=== PATIENT | female | born 1970 | race Caucasian/White ===

== ENCOUNTER 2023-07-29 10:45 | Emergency (ER) | payer OTHER, SELFPAY ==
[2023-07-29] VITALS (11 sets, daily range): BP systolic 128–158; BP diastolic 82–99; PULSE 65–87
--- NOTE | 2023-07-29 11:14 | ED.GENMED ---
History of Present Illness
<Tessa Still PA-C - Last Filed: 07/29/23 18:06>
General
Chief Complaint: Dizziness
Source: patient
Exam Limitations: none
Time Seen by Provider: 07/29/23 11:12
Nursing documentation reviewed up to this point in time: agreed with
Travel History
Have you had any contact with someone who has COVID-19?: No
Do you have any symptoms of coronavirus? Fever > 100 degrees, chills, cough, shortness of breath, sore throat, loss of taste or smell, muscle aches, or headache?: No
History of Present Illness
History of Present Illness:
This is a 53-year-old female with past medical history of breast cancer status postlumpectomy, hyperlipidemia presenting the emergency department today with dizziness, nausea, and vomiting for the past 2 weeks. Patient states that it started as
dizziness and lightheadedness when standing from a sitting position but then progressed to feeling dizzy no matter the position as well as associated nausea and vomiting. Patient states that she feels the best when she is laying down and keeping
her head still as possible. Patient denies any feeling of the room spinning, denies any chest pain or shortness of breath. Patient denies any fevers or chills. Patient denies any visual changes. Patient has no associated headache with this.
Patient denies any syncopal episodes. Patient states that she has breast cancer history at the end of 2022, her treatment resolved and she currently takes estrogen inhibitor that she has been on for around 6 months patient told her oncologist about
her symptoms a week ago who wrote her prescription for meclizine and patient states that this did not really help her symptoms much. Patient states that she then saw urgent care 5 days ago and received Zofran which does help her a lot but she does
still have her symptoms.
Review of Systems
<Tessa Still PA-C - Last Filed: 07/29/23 18:06>
Review of Systems
All Other Systems: ROS reviewed and negative except as documented in HPI and ROS
Phy Exam
<Tessa Still PA-C - Last Filed: 07/29/23 18:06>
Physical Exam
Physical Exam:
General: Patient is well appearing and in no acute distress; non-toxic
Skin: Warm and dry, no rashes or lesions
Head: Normocephalic, atraumatic
Eyes: Sclera non-icteric. EOMs intact. PERRLA.
Cardiac: Regular rate and rhythm, no murmurs
Peripheral Vascular: No lower extremity swelling
Pulm: Normal respiratory effort, no wheezes, rales, or rhonchi
Abdomen: No abdominal tenderness
Neuro: CN II-XII intact, no focal neurologic deficits. No dysmetria--finger to nose, heel to denise testing intact.
Psychiatric: Appropriate mood and affect.
Course
<Tessa Still PA-C - Last Filed: 07/29/23 18:06>
Orders/Labs/Results
Orders:
Orders
07/29/23 10:51
Electrocardiogram (*1) Urgent
Reason for Study: Chest Pain
EKG- Treatment ONCE
07/29/23 11:22
Complete Blood Count/With Diff Urgent
Comprehensive Metabolic Panel Urgent
Troponin I Urgent
07/29/23 11:30
Orthostatic VS- Treatment ONCE
07/29/23 11:44
CT Head W/o Iv Contrast Urgent
Comment:
Reason For Exam: 2 wk dizziness, hx of breast cancer
07/29/23 11:55
0.9% Sodium Chloride 1000 ml [Nss] 1,000 ml IV BOLUS
07/29/23 13:32
Ondansetron Injectable [Zofran] 4 mg IV NOW STA
07/29/23 16:12
Dexamethasone Sod Phosphate [Decadron] 10 mg IV NOW STA
Abnormal Lab Results
07/29/23
11:22
BUN 20 H mg/dl
(7-17)
Glucose 132 H mg/dl
(70-99)
Calcium 10.3 H mg/dl
(8.4-10.2)
07/29/23 11:22
07/29/23 11:22
Vital Signs
Initial and Last Documented VS:
Initial Vital Signs
Temp Pulse Resp BP Pulse Ox
98.8 F 98 20 153/92 98
07/29/23 10:46 07/29/23 10:46 07/29/23 10:46 07/29/23 10:46 07/29/23 10:46
Last Documented Vital Signs
Temp Pulse Resp BP Pulse Ox
98.8 F 76 13 158/93 98
07/29/23 10:46 07/29/23 17:15 07/29/23 17:15 07/29/23 17:00 07/29/23 17:15
<Titi Cortez, DO - Last Filed: 07/29/23 16:07>
Orders/Labs/Results
Orders:
Orders
07/29/23 10:51
Electrocardiogram (*1) Urgent
Reason for Study: Chest Pain
EKG- Treatment ONCE
07/29/23 11:22
Complete Blood Count/With Diff Urgent
Comprehensive Metabolic Panel Urgent
Troponin I Urgent
07/29/23 11:30
Orthostatic VS- Treatment ONCE
07/29/23 11:44
CT Head W/o Iv Contrast Urgent
Comment:
Reason For Exam: 2 wk dizziness, hx of breast cancer
07/29/23 11:55
0.9% Sodium Chloride 1000 ml [Nss] 1,000 ml IV BOLUS
07/29/23 13:32
Ondansetron Injectable [Zofran] 4 mg IV NOW STA
07/29/23 16:12
Dexamethasone Sod Phosphate [Decadron] 10 mg IV NOW STA
Abnormal Lab Results
07/29/23
11:22
BUN 20 H mg/dl
(7-17)
Glucose 132 H mg/dl
(70-99)
Calcium 10.3 H mg/dl
(8.4-10.2)
07/29/23 11:22
07/29/23 11:22
Vital Signs
Initial and Last Documented VS:
Initial Vital Signs
Temp Pulse Resp BP Pulse Ox
98.8 F 98 20 153/92 98
07/29/23 10:46 07/29/23 10:46 07/29/23 10:46 07/29/23 10:46 07/29/23 10:46
Last Documented Vital Signs
Temp Pulse Resp BP Pulse Ox
98.8 F 76 13 158/93 98
07/29/23 10:46 07/29/23 17:15 07/29/23 17:15 07/29/23 17:00 07/29/23 17:15
<Tessa Still PA-C - Last Filed: 07/29/23 18:06>
MDM/Problems Addressed
Differential Diagnosis Includes:
Differentials include BPPV, optic neuritis, metastatic brain cancer, orthostatic hypotension
MDM/Problems Addressed:
Nausea, dizziness
Chronic conditions affecting care: Cancer and Other (hyperlipidemia)
<Tessa Still PA-C - Last Filed: 07/29/23 18:06>
*Pulse Oximetry
Patient hypoxic: no
*Critical Care Note
Total Time (30-74mins, 75-104mins- exclusive of procedures): 65 min
Data Reviewed
Review of Other/Old Records Reveals: Records (No previous ER visits to review) and Discharge Summary (no discharge summary in [facility] to review)
Source: patient and records
<Titi Cortez DO - Last Filed: 07/29/23 16:07>
*Radiology
Radiology exam reviewed: preliminary read by ED provider (Brain mass noted) and radiology read reviewed
*Critical Care Note
Total Time (30-74mins, 75-104mins- exclusive of procedures): 65 minutes
Data Reviewed
Prescriptions/Medications Considered But Not Given:
Consider meclizine but did not tolerate it at home
<Titi Cortez DO - Last Filed: 07/29/23 16:07>
Patient Management
Discussion with other providers: Radiologist (Agrees with brain mass and suspects most likely be metastasis)
Escalation/DeEscalation of care consider admission/obs:
Unfortunate finding on CT. IV Decadron. Consult with [place] [facility] for transfer.
<Tessa Still PA-C - Last Filed: 07/29/23 18:06>
Update Note
Update Note:
This is a 53-year-old female with past medical history of breast cancer status postlumpectomy, hyperlipidemia presenting the emergency department today with dizziness, nausea, and vomiting for the past 2 weeks. The symptoms started just when the
patient would stand from sitting position but now progressed to having symptoms all the time. Patient is well-appearing, her neurologic exam is unremarkable. Patient recently finished treatment for breast cancer at the end of 2022. Considering
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 Considering this finding, patient was transferred to [facility] in follow-up ago where her previous
oncologic care was located. Patient was given a dose of Decadron here to help with the swelling. In addition, I did speak to the accepting doctor in follow-up via you recommends continuing the Decadron no antiepileptics at this time. Patient
accepted at [place].
ED Attending Note
<Tessa Still PA-C - Last Filed: 07/29/23 18:06>
-
Portions of this chart may have been created with voice recognition software.� Occasional wrong word or��sound alike� substitutions may have occurred due to the inherent limitations of voice recognition software.
<Titi Cortez DO - Last Filed: 07/29/23 16:07>
ED Attending Note
Patient seen and examined by attending physician: Yes
I performed the substantive portion of visit, reviewed & personally made and approve the management plan that is documented in note by myself or JAYLYN.: Yes
ED Attending Note:
53yo female with h/o breast ca in past who presents with nausea/vomiting and dizziness. Patient states that she was given meclizine and has been seen. Check she has an appoint with ENT as well. The patient states that does not necessarily room
spinning but sometimes she does not feel comfortable with an overhead fan spinning or overhead lights. She presents today because of the vomiting. Patient states that few weeks ago and did have headache lightheaded going from sitting to standing
but over the last week or more it has been more persistent nausea with this dizziness. She states she has a difficult time describing it. No current headache. No neck pain. No shortness of breath. No motor weakness. No vision changes. Exam:
Awake alert, no focal motor deficits, no nystagmus, TMs normal bilaterally. Assessment plan: In light of her history, check CT. If negative, control symptoms and okay for discharge and outpatient follow-up. Will provide vestibular clinic as well.
May need outpatient MRI
Discharge Plan
Departure
Patient Disposition: Acute Care Hospital
Patient with high blood pressure during this ER visit?: Yes
Discharge Problem:
Brain mass
Referrals:
Jonas Taylor DO [Family Provider] -
Hospital Transfer
Other hospital: [facility]
I certify that the patient requires transfer: Yes
Discussed case with accepting physician: Dr. Tierney
Reason for transfer: higher level of care
Interventions
Interventions:
*Risk Screen - Suicide Last Done: 07/29/23 10:46
*General Assessment Last Done: 07/29/23 10:46
*Neglect/Abuse Screening Last Done: 07/29/23 10:46
ED- Fall Risk Assessment Last Done: 07/29/23 11:21
*Nursing Disposition Last Done: 07/29/23 17:55
ED- Neurological Assessment Last Done: 07/29/23 11:21
ED- Cardiac Assessment Last Done: 07/29/23 11:21
ED Swallowing Screen Last Done: 07/29/23 11:28
Discharge Date and Time
Discharge Date/Time: 07/29/23 17:56
Print Language: [id number]
[2023-07-29 11:33] LABS: % Basophils 0.4 % (0-2); % Eosinophils 0.5 % (0-6); % Immature Granulocytes 0.2 % (0-0.5); % Lymphocytes 24.8 % (20.5-51.1); % Monocytes 5.2 % (1.7-9.3); % Neutrophils 68.9 % (42.2-75.2); Absolute Lymphocytes 2.1 10^3/uL (1.2-3.4); Absolute Monocytes 0.4 10^3/uL (0.1-0.6); Absolute Neutrophils 5.8 10^3/uL (1.4-6.5); Hematocrit 41.8 % (37.0-47.0); Hemoglobin 15.1 g/dL (12.0-16.0); Mean Corp Hgb Conc. 36.1 g/dL (33.0-37.0); Mean Corpuscular Volume 85.8 fL (81.0-99.0); Mean Platelet Volume 9.2 fL (7.4-10.4); Nucleated Red Blood Cells % 0 %; Platelet Count 286 10^3/uL (130-400); Red Blood Cell Count 4.87 10^6/uL (4.20-5.40); Red Cell Dist. Width 12.1 % (11.5-14.5); White Blood Cell Count 8.5 10^3/uL (4.8-10.8)
[2023-07-29 11:47] LABS: ALT (SGPT) 29 U/L (0-35); AST (SGOT) 25 U/L (14-36); Albumin 4.7 g/dl (3.5-5.0); Alkaline Phosphatase 113 U/L (38-126); Blood Urea Nitrogen 20 mg/dl (7-17); Calcium 10.3 mg/dl (8.4-10.2); Carbon Dioxide 28 mmol/L (22-30); Chloride 100 mmol/L (98-107); Glucose 132 mg/dl (70-99); Sodium 139 mmol/L (135-145); Total Bilirubin 0.8 mg/dl (0.2-1.3); Total Protein 7.8 g/dl (6.3-8.2); eGFR > 60.00
[2023-07-29 11:56] LABS: Troponin I < 0.012 ng/ml
[2023-07-29] MEDS: NSS 1000 IV (12:06)
[2023-07-29] MEDS: ZOFRAN 4 MG IV (13:35)
[2023-07-29] MEDS: DECADRON 10 MG IV (16:36)
== END 2023-07-29 17:56 | disposition short-term general hospital (02) ==
LOC: EMR 10:45
PROVIDERS: Physician Assistant; EMERGENCY PHYSICIAN Emergency Medicine; FAMILY PHYSICIAN Family Medicine
DX: G93.9 Disorder of brain, unspecified (principal); E78.5 Hyperlipidemia, unspecified
CPT/HCPCS: 99285; 96374; 96375; 96361; 70450; 80053; 84484; 85025; 93005